=== PATIENT | male | born 1995 | race Caucasian/White ===

== ENCOUNTER 2019-10-19 12:23 | Emergency (ER) | payer MEDICAID, OTHER ==
[~2019-10-19] VITALS: Ht 190.5 cm; Wt 97.0 kg
[2019-10-19 12:27] VITALS: BP 131/83
[2019-10-19] MEDS ORDERED: polyethylene glycol 3350 17gm powd pack PO STA (13:12)
[2019-10-20] MEDS ORDERED: PANT-47 PO (12:36)
[2019-10-20] MEDS ORDERED: ONDA8TAB6 PO (12:36)
== END 2019-10-19 13:40 | disposition home or self-care (01) ==
LOC: ER 12:24
DX: K59.00 Constipation, unspecified (principal); R11.2 Nausea with vomiting, unspecified; R10.9 Unspecified abdominal pain; F12.90 Cannabis use, unspecified, uncomplicated
CPT/HCPCS: 99282

== ENCOUNTER 2019-10-20 10:34 | Emergency (ER) | payer MEDICAID, OTHER ==
[2019-10-20] MEDS ORDERED: normal saline 1000ML IV soln IVB ONE (11:00)
[2019-10-20] MEDS ORDERED: pantoprazole 40 MG vial IV ONE (11:00)
[2019-10-20] MEDS ORDERED: ondansetron/PF 4mg/2ml inj IV ONE (11:00)
[2019-10-20 11:37] LABS: EOSINOPHILS # (AUTO) 0.1 X10'3 (0-0.9); LYMPHOCYTES # (AUTO) 1.1 X10'3 (1.1-4.8); MEAN PLATELET VOLUME 8.8 FL (7.4-10.4); WHITE BLOOD COUNT 6.2 X10'3 (4.5-11.0)
[2019-10-20 11:38] LABS: BASOPHILS % (AUTO) 0.5 % (0-1); EOSINOPHILS % (AUTO) 1.8 % (0-6); HEMATOCRIT 48.8 % (42.0-52.0); MEAN CORPUSCULAR HGB CONC 34.8 g/dL (33.0-36.5); MEAN CORPUSCULAR VOLUME 94.8 FL (78-98); MONOCYTES # (AUTO) 0.3 X10'3 (0-0.9); MONOCYTES % (AUTO) 4.4 % (2-12); NEUTROPHILS # (AUTO) 4.7 X10'3 (1.8-7.7); NEUTROPHILS % (AUTO) 75.3 % (42-75); PLATELET COUNT 224 X10'3 (140-440); RED BLOOD COUNT 5.15 X10'6 (4.70-6.10); RED CELL DISTRIBUTION WIDTH 13.1 % (11.5-14.5)
[2019-10-20 11:55] LABS: ALANINE AMINOTRANSFERASE 22 U/L (12-78); ALBUMIN 3.9 G/DL (3.4-5.0); ALKALINE PHOSPHATASE 63 IU/L (46-116); ANION GAP 8 (8-16); ASPARTATE AMINO TRANSFERASE 16 U/L (10-37); BILIRUBIN,TOTAL 1.3 MG/DL (0.1-1.0); BLOOD UREA NITROGEN 11 MG/DL (7-18); BUN/CREATININE RATIO 10.8 (5.4-32.0); CALCIUM 9.7 MG/DL (8.5-10.1); CHLORIDE 105 MMOL/L (99-107); CREATININE 1.02 MG/DL (0.60-1.10); GLUCOSE 100 MG/DL (70-104); LIPASE 79 U/L (73-393); POTASSIUM 3.8 MMOL/L (3.5-5.1); SODIUM 140 MMOL/L (135-145); TOTAL CARBON DIOXIDE 27.2 MMOL/L (24-32); TOTAL PROTEIN 7.9 G/DL (6.4-8.2); eGFR > 90 ML/MIN
[2019-10-20] MEDS ORDERED: polyethylene glycol 3350 17gm powd pack PO ONE (12:35)
[2019-10-20] MEDS ORDERED: PANT-47 PO (12:36)
[2019-10-20] MEDS ORDERED: ONDA8TAB6 PO (12:36)
[2019-10-20 12:55] VITALS: BP 133/67
== END 2019-10-20 12:58 | disposition home or self-care (01) ==
LOC: ER 10:34
DX: K59.00 Constipation, unspecified (principal); R11.2 Nausea with vomiting, unspecified; R10.13 Epigastric pain; R10.32 Left lower quadrant pain; F17.200 Nicotine dependence, unspecified, uncomplicated; F12.90 Cannabis use, unspecified, uncomplicated; Z79.899 Other long term (current) drug therapy
CPT/HCPCS: 36415; 74022; 80053; 83690; 85025; 96361; 96374; 96375; 99284; C9113; J2405; J7030

== ENCOUNTER 2019-11-21 10:27 | Emergency (ER) | payer MEDICAID, OTHER ==
[~2019-11-21] VITALS: Ht 190.5 cm; Wt 98.0 kg
[~2019-11-21 10:27] MED LIST: ONDA8TAB6 PO; PANT-47 PO
[2019-11-21 10:30] VITALS: BP 141/87
[2019-11-21 11:06] LABS: BASOPHILS % (AUTO) 0.2 % (0-1); EOSINOPHILS % (AUTO) 0.5 % (0-6); HEMATOCRIT 45.6 % (42.0-52.0); HEMOGLOBIN 15.9 g/dl (14.0-17.9); LYMPHOCYTES % (AUTO) 12.1 % (21-51); MEAN CORPUSCULAR HEMOGLOBIN 32.6 PG (27.0-31.0); MEAN CORPUSCULAR HGB CONC 34.8 g/dL (33.0-36.5); MEAN CORPUSCULAR VOLUME 93.9 FL (78-98); MEAN PLATELET VOLUME 8.9 FL (7.4-10.4); MONOCYTES # (AUTO) 0.3 X10'3 (0-0.9); MONOCYTES % (AUTO) 4.1 % (2-12); NEUTROPHILS # (AUTO) 6.8 X10'3 (1.8-7.7); NEUTROPHILS % (AUTO) 83.1 % (42-75); PLATELET COUNT 236 X10'3 (140-440); RED BLOOD COUNT 4.86 X10'6 (4.70-6.10); RED CELL DISTRIBUTION WIDTH 12.8 % (11.5-14.5); WHITE BLOOD COUNT 8.2 X10'3 (4.5-11.0)
[2019-11-21 11:21] LABS: ALANINE AMINOTRANSFERASE 17 U/L (12-78); ALBUMIN/GLOBULIN RATIO 1.1 (1.1-1.5); ALKALINE PHOSPHATASE 59 IU/L (46-116); AMYLASE 58 U/L (25-115); ANION GAP 11 (8-16); ASPARTATE AMINO TRANSFERASE 17 U/L (10-37); BILIRUBIN,TOTAL 0.8 MG/DL (0.1-1.0); BLOOD UREA NITROGEN 10 MG/DL (7-18); BUN/CREATININE RATIO 9.9 (5.4-32.0); CALCIUM 9.4 MG/DL (8.5-10.1); CHLORIDE 106 MMOL/L (99-107); CREATININE 1.01 MG/DL (0.60-1.10); GLUCOSE 97 MG/DL (70-104); LIPASE 78 U/L (73-393); POTASSIUM 3.7 MMOL/L (3.5-5.1); SODIUM 143 MMOL/L (135-145); TOTAL CARBON DIOXIDE 26.5 MMOL/L (24-32); TOTAL PROTEIN 7.5 G/DL (6.4-8.2); eGFR > 90 ML/MIN
[2019-11-21] MEDS ORDERED: LIDOcaine Viscous 15ml cup MM PRN (11:30)
[2019-11-21] MEDS ORDERED: famotidine 10mg tablet PO SCH (11:30)
[2019-11-21] MEDS ORDERED: mag hydrox/Alum hydrox/simeth 30ml oral suspension PO ONE (11:30)
[2019-11-21] MEDS ORDERED: famotidine 20mg tablet PO ONE (11:35)
[2019-11-21] MEDS ORDERED: MAG-154 PO (11:37)
[2019-11-21 12:27] LABS: CLARITY,URINE CLEAR (Clear); COLOR,URINE YELLOW (Yellow); GLUCOSE, URINE NEGATIVE (Neg); KETONES,URINE >=80 mg/dl (Neg); LEUKOCYTE ESTERASE ,URINE NEGATIVE (Neg); NITRITES, URINE NEGATIVE (Neg); OCCULT BLOOD,URINE NEGATIVE (Neg); PH,URINE 7.5 (4.8-8.0); PROTEIN,URINE NEGATIVE (Neg)
[2019-11-21 12:36] LABS: UA COLLECTION TYPE CLN CATCH MIDSTREAM
== END 2019-11-21 12:48 | disposition home or self-care (01) ==
LOC: ER 10:27
DX: K29.00 Acute gastritis without bleeding (principal); F17.210 Nicotine dependence, cigarettes, uncomplicated; F12.90 Cannabis use, unspecified, uncomplicated; Z79.899 Other long term (current) drug therapy; Z72.89 Other problems related to lifestyle
CPT/HCPCS: 36415; 80053; 81003; 82150; 83690; 85025; 99284